=== PATIENT | female | born 1980 | race Caucasian/White ===

== ENCOUNTER 2020-06-21 11:18 | Emergency (ER) | payer OTHER ==
[~2020-06-21] VITALS: Ht 165.1 cm; Wt 90.1 kg
--- NOTE | 2020-06-21 11:32 | NUR ---
WALKED BACK FROM TRIAGE WITH CHIEF COMPLAINT OF NAUSEA THIS MORNING AT 2 AM, EXPERIENCED SYNCOPAL EVENT. DENIES TRAUMA, CP, SOB. CONTINUED "NORMAL" ACTIVITIES; WENT TO GYM, & WALKED DOGS." NO COMPLAINTS AT THIS TIME, RECOMENDED BY PCP TO BE EVALUATED.
[2020-06-21 12:14] LABS: BASOPHILS # (AUTO) 0.02 x10^3/uL (0-0.1); BASOPHILS % (AUTO) 0 % (0-1); EOSINOPHILS # (AUTO) 0.02 x10^3/uL (0-0.4); EOSINOPHILS % (AUTO) 0 % (1-7); LYMPHOCYTES # (AUTO) 1.93 x10^3/uL (1-3.4); LYMPHOCYTES % (AUTO) 28 % (22-44); MD NO; MEAN CORPUSCULAR VOLUME 90.9 fL (80-100); MEAN PLATELET VOLUME 7.6 fL (7.4-10.4); MONOCYTES # (AUTO) 0.53 x10^3/uL (0.2-0.8); MONOCYTES % (AUTO) 8 % (2-9); NEUTROPHILS # (AUTO) 4.48 x10^3/uL (1.8-6.8); NEUTROPHILS % (AUTO) 64 % (42-75); PLATELET COUNT 281 x10^3/uL (130-400); RED BLOOD COUNT 4.31 x10^6/uL (3.82-5.3); RED CELL DISTRIBUTION WIDTH 12.9 % (9.6-15.2)
[2020-06-21 12:24] VITALS: BP 131/77
[2020-06-21 12:24] LABS: ALBUMIN 4.2 g/dL (3.4-5.0); ANION GAP 7 mmol/L (5-15); CALCIUM 8.6 mg/dL (8.5-10.1); CHLORIDE 109 mmol/L (98-107); CREATININE 0.96 mg/dL (0.55-1.02)
--- NOTE | 2020-06-21 12:24 | NUR ---
PATIENT LYING IN GURNEY WATCHING TV, NO ACUTE SIGNS OF DISTRESS, CALL LIGHT WITHIN REACH, NO FURTHER NEEDS AT THIS TIME.
[2020-06-21 12:27] LABS: TROPONIN I < 0.015 ng/mL (0.000-0.045)
--- NOTE | 2020-06-21 13:36 | NUR ---
ERMD at bedside to discuss POC.
--- NOTE | 2020-06-21 13:38 | NUR ---
Discharge instructions reviewed
== END 2020-06-21 13:49 | disposition home or self-care (01) ==
LOC: ED 12:14
DX: R55 Syncope and collapse (principal); R11.0 Nausea; R94.31 Abnormal electrocardiogram [ECG] [EKG]; R07.9 Chest pain, unspecified
CPT/HCPCS: 36415; 71045; 80048; 82040; 84484; 85025; 93005; 99285